=== PATIENT | female | born 1945 | race Caucasian/White ===

== ENCOUNTER → 2018-01-21 | Outpatient (CLI) | payer OTHER ==
[~2018-01-21] MED LIST: ASPI81TA21 PO; CHOL1000 PO; HYDC25 PO; INSUINJ8 SC; LISI-461 PO; LOVA10TA3 PO; METH-589 PO; MULT-506 PO; PARO1TAB27 PO; POTA10CA28 PO; REPA1TAB40 PO
[2018-01-21 15:53] LABS: ALBUMIN 3.6 gm/dl (3.4-5.0); ALT/SGPT 18 U/L (12-78); AST/SGOT 11 U/L (15-37); BLOOD UREA NITROGEN 16 mg/dl (7-18); CALCIUM 9.2 mg/dl (8.5-10.1); CARBON DIOXIDE 29 mmol/L (21-32); CREATININE 0.89 mg/dl (0.60-1.20); GLUCOSE 149 mg/dl (70-99); POTASSIUM 3.6 mmol/L (3.5-5.1); SODIUM 139 mmol/L (136-145)
[2018-01-21 16:02] LABS: ALKALINE PHOSPHATASE 63 U/L (45-117); CHOLESTEROL 126 mg/dl (0-200); LDL CHOLESTEROL CALCULATED 35 mg/dl; TOTAL PROTEIN 7.2 gm/dl (6.4-8.2)
== END | disposition home or self-care (01) ==
LOC: C.LAB1850 14:31
PROVIDERS: ATTEND Physician Assistant
DX: E11.9 Type 2 diabetes mellitus without complications (principal)